=== PATIENT | male | born 1980 | race Hispanic/Latino ===

== ENCOUNTER 2018-12-24 01:15 | Observation (INO) | payer SELFPAY ==
[2018-12-24 01:48] LABS: #Eosinphils 0.2 thou/uL (0.0-0.7); #Lymphocytes 1.3 thou/uL (1.20-3.40); #Monocytes 0.7 thou/uL (0.11-0.59); %Basophils 0.4 % (0.0-1.0); %Eosinophils 2.5 % (0.0-10.0); %Lymphocytes 20.5 % (21.0-51.0); %Monocytes 10.7 % (0.0-10.0); %Neutrophils 65.8 % (42.0-75.0); Hemoglobin 16.6 g/dL (14.0-18.0); Mean Corpuscular HGB CONC 35.5 g/dL (32.0-36.0); Mean Corpuscular Hemoglobin 31.9 pg (27.0-31.0); Mean Corpuscular Volume 89.8 fL (78.0-98.0); Mean Platelet Volume 7.1 fL (7.4-10.4); Platelet Count 213 thou/uL (130-400); RBC Distribution Width 11.9 % (11.5-14.5); Red Blood Cell (RBC) Count 5.21 mill/uL (4.70-6.10); White Blood Cell (WBC) Count 6.1 thou/uL (4.8-10.8)
[2018-12-24 02:07] LABS: ALT (SGPT) 77 U/L (8-55); AST (SGOT) 37 U/L (5-34); Albumin 4.4 g/dL (3.5-5.0); Alkaline Phosphatase 144 U/L (40-150); Anion Gap 12 mmol/L (10-20); BUN (Urea Nitrogen) 11 mg/dL (8.9-20.6); Bilirubin, Total 0.7 mg/dL (0.2-1.2); Calc. Creatinine Clearance 0 mL/min (70-130); Calcium 10.1 mg/dL (7.8-10.44); Carbon Dioxide 29 mmol/L (22-29); Chloride 102 mmol/L (98-107); Estimated GFR-MDRD Greater than 90; Globulin 2.9 g/dL (2.4-3.5); Glucose 150 mg/dL (70-105); Potassium 3.5 mmol/L (3.5-5.1); Protein, Total 7.3 g/dL (6.0-8.3); Sodium 139 mmol/L (136-145)
[2018-12-24] MEDS ORDERED: Nitroglycerin 2% Ointment 1 INCH/1 GM Packet ONE (02:07)
[2018-12-24] MEDS ORDERED: Aspirin Chewable 81 MG TAB ONE (03:06)
[2018-12-24 05:26] LABS: Troponin I 0.014 ng/mL (< 0.028)
[2018-12-24 06:24] VITALS: BMI 31.3
[2018-12-24 08:28] LABS: Acetaminophen Less than 6.0 mcg/mL (10.0-30.0); Alcohol Less than 10 mg/dL (Less than 10); Salicylate Less than 8.0 mg/dL (15.0-30.0)
[2018-12-24 08:33] LABS: Troponin I Less than 0.010 ng/mL (< 0.028)
--- NOTE | 2018-12-24 08:47 | RAD ---
CHEST ONE VIEW: History: Dyspnea. Comparison: None. FINDINGS: Normal cardiac silhouette. The pulmonary vessels and hilum are normal. Costophrenic angles are clear. Lungs are hyperinflated. Patchy interstitial opacities throughout the lung bases. No pneumothorax or osseous abnormalities. IMPRESSION: Bibasilar interstitial opacities presumed to be due to infiltrate. Continued surveillance to ensure r esolution. POS: OFF
[2018-12-24] MEDS ORDERED: Ondansetron ODT 4 MG TAB PO PRN (09:31)
[2018-12-24] MEDS ORDERED: hydrALAZINE 20 MG/ML VIAL SLOW IVP PRN (09:31)
[2018-12-24] MEDS ORDERED: Acetaminophen 500 MG TAB PO PRN (09:31)
[2018-12-24 10:06] LABS: Bacteria/HPF None Seen HPF (None Seen); Bilirubin Negative (Negative); Blood, Urine Negative (Negative); Clarity Clear (Clear); Glucose, Urine (Dipstick) Normal (Negative); Leukocyte Negative Leu/uL (Negative); Nitrite Negative (Negative); Protein, Urine (Dipstick) 20 mg/dL (Neg-Trace); Squamous Epithelial None Seen HPF (0-3); Urobilinogen Normal mg/dL (Less than 2); WBC/HPF 0-3 HPF (0-3)
[2018-12-24 10:14] LABS: Amphetamine Not Detected (NotDetected); Barbiturates Screen Not Detected (NotDetected); Benzodiazepine Screen Not Detected (NotDetected); Cocaine Metabolite Screen Not Detected (NotDetected); Medtox Control Line Valid? VALID (VALID); Medtox Reader # READER 4; Methadone Not Detected (NotDetected); Methamphetamine Not Detected (NotDetected); Opiate Screen Not Detected (NotDetected); Oxycodone Screen Not Detected (NotDetected); Phencyclidine (PCP) Not Detected (NotDetected); THC/Cannabinoid Screen Not Detected (NotDetected); Tricyclic Screen Not Detected (NotDetected)
[2018-12-24 10:21] LABS: RBC/HPF None Seen HPF (0-3); Urine Culture Reflex No No
[2018-12-24] MEDS: cefTRIAXone\\ROCEPHIN 1 GM in Sodium Chloride 0.9% 100 ML IVPB SCH (10:35)
[2018-12-24] MEDS: Azithromycin 500 MG in Sodium Chloride 0.9% 250 ML 250 ML IVPB SCH (11:27)
[2018-12-24] MEDS: Sodium Chloride 0.9% 1,000 ML IV SCH ×2 (11:27→20:29)
--- NOTE | 2018-12-24 11:49 | RAD ---
RADIOGRAPH CHEST 2 VIEWS: DATE: 12/24/18 HISTORY: 38-year-old male with dyspnea. Follow-up infiltrate. COMPARISON: 12/24/18 at 0237 hours. FINDINGS: There is no air space density, pulmonary edema, pleural effusion, pneumothorax, or cardiomegaly. The densities noted in the lower lung zones on one of the prior two AP images, are no longer visualized, and is attributed to technique/ positioning. IMPRESSION: No acute cardiopulmonary findings. marium newby POS: CET
--- NOTE | 2018-12-24 19:32 | HP ---
CHIEF COMPLAINT: Shortness of breath, diaphoresis, cough, and emesis x1. HISTORY OF PRESENT ILLNESS: is a 38-year-old male with no past medical history, who presented to the ED this morning with complaints as outlined above. The patient states that he went to bed, and began having some episodes of sweating. This was associated with shortness of breath and cough. He also describes some orthopnea. He states that when he would lie down flat, he felt as if he could not breathe. He had to get up, walk outside to get his breath back. He did as mentioned have an associated cough with emesis x1. He actually stated he felt as if he kept lying down he "would not make it through the night." He presented to the ED for further workup and treatment. When the patient arrived to the ED, he was significantly hypertensive with initial blood pressure to be 200/124. He was treated with aspirin and nitroglycerin paste. His blood pressure did respond well with last blood pressure in the emergency department 162/94. His serial enzymes were all negative. He had no white count. Largely, his lab work was unremarkable aside from mild elevated AST and ALT, and glucose of 150. REVIEW OF SYSTEMS: Twelve-point review of systems performed and is negative except that stated above. PAST MEDICAL HISTORY: None. PAST SURGICAL HISTORY: Surgical intervention of the right forefinger after fracture. PSYCHIATRIC HISTORY: None. SOCIAL HISTORY: The patient drinks 4 to 6 beers per day. He denies any drug use. He has no smoking history. 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 FAMILY HISTORY: He had an aunt who of an [place]. His dad has diabetes mellitus. His grandparents are alive and well and all in their 90s. ALLERGIES: NO KNOWN DRUG ALLERGIES. MEDICATIONS: None. PHYSICAL EXAMINATION: VITAL SIGNS: Blood pressure 135/75, pulse 68, respirations are 20, O2 saturation is 97% on room air, and temperature 97.7. GENERAL: The patient is well appearing and resting comfortably in bed. He is in no acute distress. HEENT: Head is atraumatic and normocephalic. Mucous membranes are moist. NECK: Trachea is midline. No carotid bruits. CV: S1 and S2. Regular rate and rhythm. No appreciable murmurs, rubs, or gallops. LUNGS: Regular respiratory rate and pattern. Clear to auscultation bilaterally. ABDOMEN: Positive bowel sounds. Soft, nontender. EXTREMITIES: No edema. SKIN: Warm and dry. He does have some red well demarcated plaques on right lower extremity consistent with possible eczema. NEUROLOGIC: Cranial nerves 2 through 12 are intact. The patient is nonfocal. LABORATORY DATA: White blood cell count 6.1, hemoglobin 16.6, hematocrit 46.8, platelet count is 213. Sodium 139, potassium 3.5, chloride 102, BUN is 11, creatinine 0.87. Troponin negative x3. BNP was 10. Urinalysis was negative for any sign of infection. His urine toxicology screen was negative as well. ASSESSMENT: 1. Shortness of breath/orthopnea, diaphoresis, cough plus emesis, questionable etiology at this point, although early pneumonia is in differential, given infiltrates noted on chest x-ray. 2. Accelerated hypertension. 3. Alcohol abuse with mildly elevated liver enzymes. PLAN: At this point, I will treat the patient empirically for community- acquired pneumonia. I will order an echocardiogram given his complaints of orthopnea and shortness of breath. I have discussed this case with Dr. Finch, who agrees with current management and agrees that the patient should be observed overnight. Regarding his hypertension, I will add metoprolol tartrate 25 mg b.i.d. and monitor his blood pressure. Further recommendations based on hospital course and findings of noninvasive testing. Will add gentle IV fluid resuscitation, as the patient may be mildly dehydrated as he works outside if BNP is normal. Job ID: [id number] [facility]
[2018-12-24] MEDS: Metoprolol Tartrate 25 MG TAB PO SCH (20:26)
[2018-12-25] MEDS: Sodium Chloride 0.9% 1,000 ML IV SCH ×3 (05:44→13:41)
[2018-12-25] MEDS: Metoprolol Tartrate 25 MG TAB PO SCH (09:20)
[2018-12-25] MEDS: Azithromycin 500 MG in Sodium Chloride 0.9% 250 ML 250 ML IVPB SCH (09:20)
[2018-12-25] MEDS ORDERED: cefTRIAXone\\ROCEPHIN 1 GM in Sodium Chloride 0.9% 100 ML IVPB SCH (10:00)
[2018-12-25] MEDS: cefTRIAXone\\ROCEPHIN 1 GM in Sodium Chloride 0.9% 100 ML IVPB SCH (13:42)
[2018-12-25] MEDS ORDERED: Metoprolol Tartrate 25 MG TAB PO SCH ×2 (14:00→21:00)
[2018-12-25 16:13] VITALS: BP 162/106; TEMP 98.8
--- NOTE | 2018-12-25 19:55 | DIS ---
DATE OF ADMISSION: 12/24/2018 DATE OF DISCHARGE: 12/25/2018 CHIEF COMPLAINT ON ADMISSION: Shortness of breath, diaphoresis, cough, and emesis x1. DISCHARGE DIAGNOSES: 1. Shortness of breath, diaphoresis, cough, and emesis x1, secondary to early community-acquired pneumonia versus accelerated hypertension versus anxiety, resolved. 2. Accelerated hypertension, much improved with oral metoprolol. 3. Alcohol abuse with mildly elevated liver enzymes. BRIEF HOSPITAL COURSE: The patient is a pleasant 38-year-old gentleman with no past medical history, who presented to the ED with the above chief complaints. The patient states that he had gone to sleep, but began having some episodes of sweating. He had some associated shortness of breath and cough. He also described some orthopnea. When he would try to lay down flat, he felt as if he could not breathe and would get up and walk outside. He became more and more anxious. He did have some cough with associated emesis x1. He presented to the ED for further workup and treatment. On arrival to the ED, the patient's blood pressure was noted to be 200/124. He was treated with aspirin and nitroglycerin paste. His blood pressure did trend down to the 160s. He was initiated on oral metoprolol 37.5 mg b.i.d. and his blood pressures have been 130s to 150s systolic. He is tolerating the medication well. Given his findings of bilateral infiltrates on chest x-ray, he was placed on empiric therapy for community-acquired pneumonia. He also had an echocardiogram, which showed preserved ejection fraction of 50% to 55%, and mild MR. The patient's symptoms have completely resolved. He denies any further shortness of breath or diaphoresis. He has no cough. I have strongly encouraged him to find a PCP and continue followup. DISCHARGE DISPOSITION: Home. DISCHARGE CONDITION: Stable. DISCHARGE INSTRUCTIONS AND FOLLOWUP: As mentioned, the patient needs to find a primary care physician. His discharge medications will be metoprolol 37.5 mg b.i.d. along with azithromycin 250 mg x3 days. I have counseled him extensively on monitoring his blood pressure daily along with aggressive risk factor modification including low-sodium diet. He has also been counseled on the effects of excessive alcohol use and the effect on the liver. He will be discharged home in stable condition today. Job ID: [id number]
--- NOTE | 2018-12-29 13:09 | EKG ---
Test Reason : Blood Pressure : / mmHG Vent. Rate : 084 BPM Atrial Rate : 084 BPM P-R Int : 154 ms QRS Dur : 088 ms QT Int : 364 ms P-R-T Axes : 040 002 005 degrees QTc Int : 430 ms Normal sinus rhythm Moderate voltage criteria for LVH, may be normal variant ST elevation in aVR Borderline ECG Confirmed by KIRAN MACKEY DO ([id number]), state editor GABRIELA DELANEY ([id number] on 12/29/2018 1:08:41 PM Referred By: Confirmed By:KIRAN MACKEY DO
== END 2018-12-25 17:45 | disposition home or self-care (01) ==
LOC: ERS 01:15 → 2SW 04:19
PROVIDERS: ADMIT Internal Medicine; ATTEND Internal Medicine
DX: R06.02 Shortness of breath (principal); R61 Generalized hyperhidrosis; R05 Cough; R11.10 Vomiting, unspecified; R06.01 Orthopnea; J18.9 Pneumonia, unspecified organism; I10 Essential (primary) hypertension; F41.9 Anxiety disorder, unspecified; F10.10 Alcohol abuse, uncomplicated; R94.5 Abnormal results of liver function studies
CPT/HCPCS: 36415; 36416; 71045; 71046; 80053; 80306; 80307; 81001; 83880; 84484; 85025; 93005; 93306; 96361; 96365; 96366; 96375; 96376; G0378; J0456; J0696; J3490; J7050

== ENCOUNTER 2021-11-02 12:44 | Emergency (ER) | payer SELFPAY ==
[2021-11-02 14:12] LABS: #Lymphocytes 1.1 thou/uL (1.20-3.40); #Monocytes 0.5 thou/uL (0.11-0.59); #Neutrophils 5.5 thou/uL (1.40-6.50); %Basophils 0.4 % (0.0-1.0); %Eosinophils 0.6 % (0.0-10.0); %Monocytes 6.6 % (0.0-10.0); %Neutrophils 77.4 % (42.0-75.0); Hemoglobin 17.1 g/dL (14.0-18.0); Mean Corpuscular HGB CONC 35.3 g/dL (32.0-36.0); Mean Corpuscular Hemoglobin 33.3 pg (27.0-31.0); Mean Corpuscular Volume 94.2 fL (78.0-98.0); Mean Platelet Volume 7.3 fL (7.4-10.4); Platelet Count 211 thou/uL (130-400); RBC Distribution Width 11.8 % (11.5-14.5); Red Blood Cell (RBC) Count 5.13 mill/uL (4.70-6.10); White Blood Cell (WBC) Count 7.1 thou/uL (4.8-10.8)
[2021-11-02 14:26] LABS: ALT (SGPT) 64 U/L (8-55); AST (SGOT) 31 U/L (5-34); Albumin 4.3 g/dL (3.5-5.0); Alkaline Phosphatase 144 U/L (40-110); Anion Gap 11 mmol/L (10-20); BUN (Urea Nitrogen) 10 mg/dL (8.9-20.6); Bilirubin, Total 1.4 mg/dL (0.2-1.2); Calc. Creatinine Clearance 0 mL/min (70-130); Calcium 9.4 mg/dL (7.8-10.44); Carbon Dioxide 30 mmol/L (22-29); Chloride 103 mmol/L (98-107); Globulin 2.9 g/dL (2.4-3.5); Glucose 146 mg/dL (70-105); Potassium 3.5 mmol/L (3.5-5.1); Protein, Total 7.2 g/dL (6.0-8.3); Sodium 140 mmol/L (136-145)
== END 2021-11-02 15:13 | disposition home or self-care (01) ==
LOC: ERS 12:44
DX: I10 Essential (primary) hypertension (principal)
CPT/HCPCS: 36415; 80053; 84484; 85025; 99283

== ENCOUNTER 2023-02-24 14:43 | Inpatient (IN) | payer SELFPAY ==
[2023-02-24 15:09] LABS: Actual Bicarbonate (HCO3v) 21.5 mEq/L (22-28); Analyzer IN Cardio ER; Base Excess -2.2 mEq/L (-2.0 to +3.0); Calcium, Ionized (venous) 1.14 mmol/L (1.16-1.32); Chloride (VBG) 95 mmol/L (98-106); Hematocrit-VBG 51 % (42.0-52.0); Hemoglobin (Hb) 17.4 g/dL (13.2-17.3); Potassium (VBG) 3.78 mmol/L (3.70-5.30); pH (venous) 7.412 (7.32-7.43)
[2023-02-24 15:29] LABS: #Eosinphils 0.1 thou/uL (0.0-0.7); #Monocytes 0.5 thou/uL (0.11-0.59); #Neutrophils 4.5 thou/uL (1.40-6.50); %Basophils 0.5 % (0.0-1.0); %Eosinophils 0.8 % (0.0-10.0); %Lymphocytes 13.6 % (21.0-51.0); %Monocytes 8.5 % (0.0-10.0); %Neutrophils 75.9 % (42.0-75.0); Hematocrit 44.1 % (42.0-52.0); Hemoglobin 16.3 g/dL (14.0-18.0); Mean Corpuscular Hemoglobin 32.3 pg (27.0-31.0); Mean Corpuscular Volume 87.3 fl (78.0-98.0); Mean Platelet Volume 10.3 fL (7.4-10.4); Platelet Count 205 10x3/uL (130-400); RBC Distribution Width 11.7 % (11.5-14.5); Red Blood Cell (RBC) Count 5.05 mill/uL (4.70-6.10); White Blood Cell (WBC) Count 5.9 10x3/uL (4.8-10.8)
[2023-02-24 16:07] LABS: Bacteria/HPF None Seen HPF (None Seen); Bilirubin Negative (Negative); Blood, Urine Negative (Negative); CAUTI Indications for Culture Dysuria,urgency,freq; Clarity Clear (Clear); Glucose, Urine (Dipstick) Greater than 1000 mg/dL (Negative); Ketone, Urine Negative (Negative); Leukocyte Negative Leu/uL (Negative); Nitrite Negative (Negative); Protein, Urine (Dipstick) Negative (Neg-Trace); RBC/HPF 0-3 HPF (0-3); Specific Gravity, Urine 1.025 (1.002-1.036); Squamous Epithelial None Seen HPF (0-3); Urobilinogen Normal mg/dL (Less than 2); WBC/HPF 0-3 HPF (0-3)
[2023-02-24 16:09] LABS: Troponin I Less than 0.010 ng/mL (< 0.028)
[2023-02-24 16:10] LABS: Urine Culture Reflex No No
[2023-02-24 16:12] LABS: ALT (SGPT) 63 U/L (8-55); AST (SGOT) 30 U/L (5-34); Albumin 4.2 g/dL (3.5-5.0); Alkaline Phosphatase 113 U/L (40-110); Anion Gap 16 mmol/L (10-20); BUN (Urea Nitrogen) 13 mg/dL (8.9-20.6); Bilirubin, Total 0.6 mg/dL (0.2-1.2); Calc. Creatinine Clearance 0 mL/min (70-130); Calcium 9.6 mg/dL (7.8-10.44); Carbon Dioxide 23 mmol/L (22-29); Chloride 94 mmol/L (98-107); Estimated GFR 61; Lipase 30 U/L (8-78); Potassium 3.5 mmol/L (3.5-5.1); Protein, Total 7.2 g/dL (6.0-8.3); Sodium 129 mmol/L (136-145)
[2023-02-24 16:14] LABS: Glucose 673 mg/dL (70-105)
[2023-02-24 16:23] LABS: Phosphorus 2.9 mg/dL (2.3-4.7)
[2023-02-24] MEDS ORDERED: HumaLOG 300 UNITS/3 ML VIAL SC PRN (18:28)
[2023-02-24] MEDS ORDERED: Dextrose 50% Abboject 50 ML SYRINGE SLOW IVP PRN (18:28)
[2023-02-24] MEDS ORDERED: Glucagon 1 MG/ML KIT IM PRN (18:28)
[2023-02-24] MEDS ORDERED: Dextrose 5% in Water 1,000 ML IV PRN (18:28)
[2023-02-24] MEDS ORDERED: Electrolyte Replacement Protocol 1 EACH FS SCH (18:45)
[2023-02-24 18:58] VITALS: BMI 35.6
[2023-02-24] MEDS: Sodium Chloride 0.9% 1,000 ML IV SCH (19:00)
[2023-02-24] MEDS: Metoprolol Tartrate 25 MG TAB PO SCH (19:06)
[2023-02-24] MEDS: HumaLOG 300 UNITS/3 ML VIAL SC PRN (19:07)
[2023-02-24 19:53] LABS: Hemoglobin A1c 9.5 % (4.0-6.0)
[2023-02-24] MEDS ORDERED: Potassium Chloride 20 MEQ TAB PO SCH (20:45)
[2023-02-24 20:59] LABS: Magnesium 1.9 mg/dL (1.6-2.6)
[2023-02-24] MEDS ORDERED: Magnesium 2 GM/50 ML(in water) 2 GM in Premix Bag 1 BAG IVPB SCH (23:45)
[2023-02-25] MEDS: Sodium Chloride 0.9% 1,000 ML IV SCH ×4 (01:55→19:45)
[2023-02-25] MEDS: HumaLOG 300 UNITS/3 ML VIAL SC PRN ×4 (05:37→17:50)
[2023-02-25 06:42] LABS: #Eosinphils 0.2 thou/uL (0.0-0.7); #Monocytes 0.6 thou/uL (0.11-0.59); #Neutrophils 3.6 thou/uL (1.40-6.50); %Basophils 0.5 % (0.0-1.0); %Eosinophils 2.7 % (0.0-10.0); %Monocytes 10.5 % (0.0-10.0); %Neutrophils 63.6 % (42.0-75.0); Hematocrit 40.1 % (42.0-52.0); Hemoglobin 14.4 g/dL (14.0-18.0); Mean Corpuscular HGB CONC 35.9 g/dL (32.0-36.0); Mean Corpuscular Hemoglobin 32.1 pg (27.0-31.0); Mean Corpuscular Volume 89.3 fl (78.0-98.0); Mean Platelet Volume 10.4 fL (7.4-10.4); Platelet Count 181 10x3/uL (130-400); RBC Distribution Width 11.9 % (11.5-14.5); Red Blood Cell (RBC) Count 4.49 mill/uL (4.70-6.10); White Blood Cell (WBC) Count 5.6 10x3/uL (4.8-10.8)
[2023-02-25 07:08] LABS: Anion Gap 15 mmol/L (10-20); BUN (Urea Nitrogen) 9 mg/dL (8.9-20.6); Calc. Creatinine Clearance 203 mL/min (70-130); Calcium 8.2 mg/dL (7.8-10.44); Carbon Dioxide 23 mmol/L (22-29); Chloride 105 mmol/L (98-107); Estimated GFR 110; Glucose 228 mg/dL (70-105); Potassium 3.3 mmol/L (3.5-5.1); Sodium 140 mmol/L (136-145)
[2023-02-25] MEDS ORDERED: Potassium Chloride 20 MEQ TAB PO SCH (08:00)
[2023-02-25] MEDS: Metoprolol Tartrate 25 MG TAB PO SCH ×3 (09:25→19:51)
[2023-02-25] MEDS ORDERED: metFORMIN 500 MG TAB PO SCH (19:30)
[2023-02-26] MEDS: Sodium Chloride 0.9% 1,000 ML IV SCH (05:12)
[2023-02-26 07:01] LABS: Anion Gap 9 mmol/L (10-20); BUN (Urea Nitrogen) 7 mg/dL (8.9-20.6); Calc. Creatinine Clearance 223 mL/min (70-130); Calcium 8.2 mg/dL (7.8-10.44); Carbon Dioxide 23 mmol/L (22-29); Chloride 107 mmol/L (98-107); Estimated GFR 113; Glucose 192 mg/dL (70-105); Potassium 3.4 mmol/L (3.5-5.1); Sodium 136 mmol/L (136-145)
[2023-02-26] MEDS ORDERED: glipiZIDE 5 MG TAB PO SCH (07:30)
[2023-02-26] MEDS ORDERED: metFORMIN 500 MG TAB PO SCH (08:00)
[2023-02-26] MEDS ORDERED: Potassium Chloride 20 MEQ TAB PO SCH (08:00)
[2023-02-26] MEDS: HumaLOG 300 UNITS/3 ML VIAL SC PRN (08:44)
[2023-02-26] MEDS: Metoprolol Tartrate 25 MG TAB PO SCH (08:44)
[2023-02-26 09:32] VITALS: BP 147/99; TEMP 98.3
== END 2023-02-26 14:17 | disposition home or self-care (01) | DRG 638 ==
LOC: ERS 14:43 → T4-B 17:34 → INTOOBSV 17:34 → OBSVTOIN 02-25 17:05
PROVIDERS: ADMIT Internal Medicine; ATTEND Family Medicine
PROC: 4A043R1 Measurement of Venous Saturation, Peripheral, Percutaneous Approach (ICD-10-PCS; principal; 2023-02-24)
DX: E11.65 Type 2 diabetes mellitus with hyperglycemia (principal); N17.9 Acute kidney failure, unspecified; I10 Essential (primary) hypertension; Z79.899 Other long term (current) drug therapy; E66.9 Obesity, unspecified; Z68.35 Body mass index [BMI] 35.0-35.9, adult; F10.90 Alcohol use, unspecified, uncomplicated; E86.0 Dehydration; E87.6 Hypokalemia; Z79.84 Long term (current) use of oral hypoglycemic drugs
CPT/HCPCS: 36415; 36416; 80048; 80053; 81001; 82010; 82805; 83036; 83690; 83735; 84100; 84484; 85025; 96374; G0378; J1642; J1815; J3475; J7050